=== PATIENT | female | born 1995 | race Caucasian/White ===

== ENCOUNTER → 2018-10-20 11:11 | Outpatient (CLI) | payer OTHER, MEDICAID, SELFPAY ==
--- NOTE | 2018-10-20 11:13 | DI.US.S_ITS ---
PROCEDURE: US PELVIC COMPLETE INDICATIONS: located iud TECHNIQUE: Real-time scanning was performed of the pelvic organs, with image documentation. Additional endovaginal scanning was necessary due to incomplete visualization of the adnexal and endometrial structures by transabdominal scanning. COMPARISON: [facility], PELVIC COMPLETE, 07/10/2011, 11:20. [facility], , PELVIC COMPLETE, 05/20/2008, 22:15. FINDINGS: Transabdominal scanning: Limited scanning through the kidneys shows no hydronephrosis. No pathologic free abdominal or pelvic fluid. Endovaginal scanning: Uterus: Uterus is normal in size at 3.7 x 4.1 x 6.0 cm. The endometrium measures 5.7 mm in combined thickness. Centrally positioned IUD is noted. Ovaries: Right and left ovaries appear normal in size with what appears to be a simple cyst at the right ovary measuring up to 2 point a 3 x 2.4 x 2.8 cm. IMPRESSION: Centrally positioned IUD, within the endometrial canal. 2.8 cm maximal dimension right ovarian cyst incidentally noted, simple. If clinically desired this could be reevaluated in 6-8 weeks to confirm resolution. Dictated by: Vladimir Espinoza M.D. on 10/20/2018 at 14:09 Approved by: Vladimir Espinoza M.D. on 10/20/2018 at 14:12
== END ==
PROVIDERS: PCP Family Medicine; Visit Provider Family Medicine
DX: T83.32XA Displacement of intrauterine contraceptive device, initial encounter (principal); N83.291 Other ovarian cyst, right side
CPT/HCPCS: 76856

== ENCOUNTER → 2019-08-23 12:49 | Outpatient (CLI) | payer OTHER, MEDICAID, SELFPAY ==
[2019-08-23 13:22] LABS: Add Manual Diff / Slide Review NO; Basophils Absolute Auto 0 /uL (0-100); Basophils Percent Auto 0.4 % (0-2); Eosinophils Absolute Auto 300 /uL (0-450); Eosinophils Percent Auto 4.7 % (2-4); Hematocrit 40.4 % (36-46); Lymphocytes Absolute Auto 1500 /uL (1100-4500); Lymphocytes Percent Auto 25.4 % (25-40); Mean Corpuscular HGB Conc 34.7 % (30-36); Mean Corpuscular Hemoglobin 31.4 PG (26-34); Mean Corpuscular Volume 90.4 fL (80-100); Monocytes Absolute Auto 300 /uL (0-900); Monocytes Percent Auto 5.1 % (3-14); Neutrophils Absolute Auto 3900 /uL (1500-7000); Neutrophils Percent Auto 64.4 % (50-75); Platelet Count 263 X10^3/uL (150-400); Red Blood Cell Count 4.47 X10^6/uL (4.0-5.2); Red Cell Distribution Width 12.4 % (11.6-14.8)
[2019-08-23 13:35] LABS: Alanine Aminotransferase 17 IU/L (<35); Albumin 4.9 g/dL (3.5-5.0); Albumin Globulin Ratio 1.4 (1.0-2.8); Alkaline Phosphatase 73 U/L (38-126); Aspartate Aminotransferase 23 IU/L (14-36); Bilirubin Total 0.5 mg/dL (0.2-1.3); Blood Urea Nitrogen 12 mg/dL (7-17); Calcium 9.6 mg/dL (8.4-10.2); Carbon Dioxide 26 mmol/L (22-32); Chloride 104 mmol/L (98-107); Estimated Glomerular Filt Rate > 60.0 mL/min (>60); Globulin 3.6 g/dL (1.7-4.1); Glucose 114 mg/dL (70-100); HEMOLYSIS < 15 (0-50); Potassium 4.4 mmol/L (3.4-5.1); Sodium 142 mmol/L (137-145); Total Protein 8.5 g/dL (6.3-8.2)
[2019-08-23 13:51] LABS: HCG Quantitative /Beta subunit < 2.39 mIU/mL
[2019-08-23 14:47] LABS: TSH w/ Reflex to FT4 0.82 uIU/mL (0.47-4.68)
== END ==
PROVIDERS: PCP Family Medicine; Visit Provider Family Medicine
DX: O03.9 Complete or unspecified spontaneous abortion without complication (principal); R53.83 Other fatigue
CPT/HCPCS: 36415; 80053; 84443; 84702; 85025; 86850; 86900; 86901

== ENCOUNTER → 2020-04-09 10:04 | Outpatient (CLI) | payer OTHER, MEDICAID, SELFPAY ==
[2020-04-09 15:17] LABS: Add Manual Diff / Slide Review NO; Basophils Absolute Auto 100 /uL (0-100); Basophils Percent Auto 0.8 % (0-2); Eosinophils Absolute Auto 200 /uL (0-450); Eosinophils Percent Auto 2.4 % (2-4); Hematocrit 39.7 % (36-46); Hemoglobin 13.5 g/dL (12.0-16.0); Lymphocytes Absolute Auto 2000 /uL (1100-4500); Lymphocytes Percent Auto 29.5 % (25-40); Mean Corpuscular Hemoglobin 31.1 PG (26-34); Mean Corpuscular Volume 91.5 fL (80-100); Monocytes Absolute Auto 400 /uL (0-900); Monocytes Percent Auto 5.8 % (3-14); Neutrophils Absolute Auto 4200 /uL (1500-7000); Neutrophils Percent Auto 61.5 % (50-75); Platelet Count 271 X10^3/uL (150-400); Red Blood Cell Count 4.34 X10^6/uL (4.0-5.2); Red Cell Distribution Width 12.4 % (11.6-14.8); White Blood Cell Count 6.9 X10^3/uL (4.5-11.0)
[2020-04-09 15:25] LABS: Chloride 102 mmol/L (98-107); HEMOLYSIS < 15 (0-50)
[2020-04-09 15:28] LABS: BUN Creatinine Ratio 18.2 (6-22); Blood Urea Nitrogen 10 mg/dL (7-17); Calcium 9.4 mg/dL (8.4-10.2); Carbon Dioxide 27 mmol/L (22-32); Estimated Glomerular Filt Rate > 60.0 mL/min (>60); Glucose 94 mg/dL (70-100); Potassium 4.2 mmol/L (3.4-5.1); Sodium 141 mmol/L (137-145)
[2020-04-09 16:06] LABS: TSH w/ Reflex to FT4 1.58 uIU/mL (0.47-4.68)
== END ==
PROVIDERS: PCP Family Medicine; Referring Provider Family Medicine; Visit Provider Family Medicine
DX: F32.9 Major depressive disorder, single episode, unspecified (principal)
CPT/HCPCS: 36415; 80048; 84443; 85025

== ENCOUNTER → 2020-05-08 13:17 | Outpatient (CLI) | payer OTHER, MEDICAID, SELFPAY ==
[2020-05-08 14:39] LABS: HCG Quantitative /Beta subunit 44953 mIU/mL
== END ==
PROVIDERS: PCP Family Medicine; Referring Provider Family Medicine; Visit Provider Family Medicine
DX: N91.2 Amenorrhea, unspecified (principal)
CPT/HCPCS: 36415; 84702

== ENCOUNTER → 2020-06-11 13:01 | Outpatient (CLI) | payer OTHER, MEDICAID, SELFPAY ==
[2020-06-11 13:39] LABS: Add Manual Diff / Slide Review NO; Basophils Absolute Auto 0 /uL (0-100); Basophils Percent Auto 0.4 % (0-2); Eosinophils Absolute Auto 100 /uL (0-450); Eosinophils Percent Auto 2.2 % (2-4); Hematocrit 36.2 % (36-46); Hemoglobin 12.5 g/dL (12.0-16.0); Lymphocytes Absolute Auto 1200 /uL (1100-4500); Lymphocytes Percent Auto 19.2 % (25-40); Mean Corpuscular HGB Conc 34.5 % (30-36); Mean Corpuscular Hemoglobin 31.3 PG (26-34); Mean Corpuscular Volume 90.8 fL (80-100); Monocytes Absolute Auto 400 /uL (0-900); Monocytes Percent Auto 6.5 % (3-14); Neutrophils Absolute Auto 4500 /uL (1500-7000); Neutrophils Percent Auto 71.7 % (50-75); Platelet Count 221 X10^3/uL (150-400); Red Blood Cell Count 3.99 X10^6/uL (4.0-5.2); Red Cell Distribution Width 12.9 % (11.6-14.8); White Blood Cell Count 6.3 X10^3/uL (4.5-11.0)
[2020-06-11 15:33] LABS: Hepatitis B Surface Antigen NEGATIVE s/c (NEGATIVE); Rubella Antibody IgG 12.8 IU/mL (>15)
[2020-06-11 15:41] LABS: HIV 1 & 2 Ab/Ag 4th Gen Combo NEGATIVE (NEGATIVE); Hep C Virus Ab w/Reflex Quant NEGATIVE s/c (NEGATIVE)
[2020-06-11 17:50] LABS: Appearance Urine UA CLEAR; Bilirubin Urine UA NEGATIVE (NEGATIVE); Color Urine UA YELLOW; Glucose Urine UA NEGATIVE (Negative); Ketones Urine UA NEGATIVE (NEGATIVE); Leukocyte Esterase Urine UA 1+ (NEGATIVE); Nitrite Urine UA NEGATIVE (Negative); Occult Blood Urine UA NEGATIVE (Negative); Protein Urine UA NEGATIVE (Negative); Specific Gravity Urine UA 1.015 (1.000-1.035); Urobilinogen Urine UA 0.2 E.U./dL (0.2)
[2020-06-11 17:52] LABS: pH Urine UA 6.5 (4.5-8.0)
[2020-06-11 17:53] LABS: RBC Urine None Seen (0-5/HPF)
[2020-06-11 18:01] LABS: Amorphous Sediment Urine 1+; Bacteria Urine Many (>30); Culture Indicated Urine Specimen Cultured; Mucus Urine 1+ (Negative); Squamous Epithelial Cell Urine 5-10 /HPF (0-5/HPF); WBC Urine 5-10/HPF (0-5/HPF)
[2020-06-12 05:10] LABS: RPR Screen Non Reactive (Non Reactive)
[2020-06-12 06:17] LABS: Varicella IgG Antibody 406 index (Immune >165)
== END ==
PROVIDERS: PCP Family Medicine; Referring Provider Family Medicine; Visit Provider Family Medicine
DX: Z34.81 Encounter for supervision of other normal pregnancy, first trimester (principal)
CPT/HCPCS: 36415; 80055; 81003; 81015; 86787; 86803; 86850; 86900; 86901; 87086; 87389

== ENCOUNTER → 2020-07-23 14:23 | Outpatient (CLI) | payer OTHER, MEDICAID, SELFPAY ==
[2020-07-25 20:36] LABS: AFP, Serum 96.6 ng/mL (.); Calc Gestational Age Ultrasound (.); Estriol, Free 2.04 ng/mL (.); Inhibin A, Dimeric 186.82 pg/mL (.); Inhibin A, MoM 1.09 (.); Maternal Ethnicity Caucasian (.); Maternal Weight 137 lbs (.); Number of Fetuses No (.); OSBR Risk 1 IN 378 (.); Results Report (.); Test Results *Screen Negative* (.); hCG, MoM 0.74 (.); hCG, Serum 25878 mIU/mL (.)
== END ==
PROVIDERS: PCP Family Medicine; Referring Provider Family Medicine; Visit Provider Family Medicine
DX: Z34.82 Encounter for supervision of other normal pregnancy, second trimester (principal); Z3A.16 16 weeks gestation of pregnancy
CPT/HCPCS: 36415; 82105; 82677; 84702; 86336

== ENCOUNTER → 2020-08-06 09:10 | Outpatient (CLI) | payer OTHER, MEDICAID, SELFPAY ==
--- NOTE | 2020-08-06 09:11 | DI.US.S_ITS ---
PROCEDURE: US OB >= 14 WEEKS FETUS INDICATIONS: ANATOMIC SURVEY OUTSIDE/PRIOR DATING DATA: First dating scan (date and location): 08/06/2020 . Estimated date of delivery (LEA) from first dating scan: 12/26/20 . TECHNIQUE: Real-time scanning was performed of the fetus, with image documentation and biometric measurements. Endovaginal scanning: No COMPARISON: None. FINDINGS: General: A single living intrauterine gestation is present. Presentation: Breech. Placenta: Placental position is anterior , without previa. Amniotic fluid index: 12.9 cm, normal range is 5-24 cm. heart rate: 135 beats per minute. Maternal cervical canal: 3.9 cm long. Normal lower limit is 2.5 cm. biometrics: Biparietal diameter: 19 weeks 2 days Head circumference: 19 weeks 3 days Abdominal circumference: 20 weeks 2 days Femur length: 19 weeks Estimated gestational age from initial scan: not applicable. Composite gestational age from present scan: 19 weeks 4 days Estimated weight and percentile: 304 g. Measurement variability for biometric dating: +/- 7 days from 14 weeks to 15 weeks 6 days gestation, +/- 10 days from 16 weeks to 21 weeks 6 days gestation, +/- 2 weeks from 22 weeks to 27 weeks 6 days gestation, +/- 3 weeks for 28 weeks gestation or later. weight reference: 4500 g or EFW >90/95% is considered macrosomia or large for gestational age. EFW <10% is small for gestational age. EFW 5% or less is considered intra-uterine growth restriction. Anatomic survey: Neuro: Ventricles are non-dilated at less than 10 mm. Cisterna magna is normal at 3-11 mm. Cerebellum is normal in size and morphology. Nuchal skin fold: Normal at less than 6 mm between 14-21 weeks gestational age. Face: Nose and lips, facial profile are normal. Spine: No evidence for spina bifida. Heart: 4-chambered heart is present, with normal ventricular outflow tracts. Diaphragm: Diaphragm is intact. Stomach: Left-sided stomach is present. Kidneys: No hydronephrosis. Normal is less than 5 mm in 2nd trimester, less than 7 mm in 3rd trimester. Cord: 3-vessel cord has orthotopic insertion. Bladder: Normal in size. Extremities: All 4 extremities identified. IMPRESSION: 1. 19 week 4 day single living IUP corresponding to ultrasound LEA of 12/26/2020. 2. Normal anatomic survey. Dictated by: Celio Gilliland RRA Interpreted: Solo Junior MD on 08/06/2020 at 15:40 Approved by: Solo Junior M.D. on 08/06/2020 at 17:04
== END ==
PROVIDERS: PCP Family Medicine; Referring Provider Family Medicine; Visit Provider Family Medicine
DX: Z34.82 Encounter for supervision of other normal pregnancy, second trimester (principal); Z3A.19 19 weeks gestation of pregnancy
CPT/HCPCS: 76811

== ENCOUNTER 2020-09-11 14:11 | Outpatient (CLI) | payer OTHER, MEDICAID, SELFPAY | END 2020-09-11 15:45 | disposition home or self-care (01) | LOC: LABOR 15:11 → OB 09-12 08:24 | PROVIDERS: PCP Family Medicine; Referring Provider Family Medicine; Visit Provider Family Medicine | DX: O47.02 False labor before 37 completed weeks of gestation, second trimester (principal); Z3A.24 24 weeks gestation of pregnancy | CPT/HCPCS: 59025; G0378; G0379 ==

== ENCOUNTER 2020-10-29 14:02 | Outpatient (CLI) | payer OTHER, MEDICAID, SELFPAY ==
[2020-10-29 15:12] LABS: Appearance Urine UA SL CLOUDY; Bilirubin Urine UA NEGATIVE (NEGATIVE); Color Urine UA YELLOW; Glucose Urine UA NEGATIVE (Negative); Ketones Urine UA TRACE (NEGATIVE); Leukocyte Esterase Urine UA 2+ (NEGATIVE); Nitrite Urine UA NEGATIVE (Negative); Occult Blood Urine UA NEGATIVE (Negative); Protein Urine UA NEGATIVE (Negative); Specific Gravity Urine UA <=1.005 (1.000-1.035); Urobilinogen Urine UA 0.2 E.U./dL (0.2)
[2020-10-29 15:25] LABS: Bacteria Urine Many (>30); Culture Indicated Urine Cult Not Indicated; RBC Urine 0-1/HPF (0-5/HPF); Squamous Epithelial Cell Urine >30 /HPF (0-5/HPF); Transitional Epi Cells Urine 1-5/HPF (0-5/HPF); WBC Urine 5-10/HPF (0-5/HPF)
== END 2020-10-29 16:29 | disposition home or self-care (01) ==
LOC: LABOR 14:56 → OB 10-30 07:01
PROVIDERS: PCP Family Medicine; Referring Provider Obstetrics & Gynecology; Visit Provider Obstetrics & Gynecology
DX: Z34.83 Encounter for supervision of other normal pregnancy, third trimester (principal); Z3A.31 31 weeks gestation of pregnancy
CPT/HCPCS: 59025; 81003; 81015; 87086; G0378; G0379

== ENCOUNTER → 2020-11-02 09:43 | Outpatient (CLI) | payer OTHER, MEDICAID, SELFPAY ==
--- NOTE | 2020-11-02 09:44 | DI.US.S_ITS ---
PROCEDURE: US OB LIMITED INDICATIONS: size and dates OUTSIDE/PRIOR DATING DATA: Last menstrual period (LMP): Not available. LMP-based estimated date of delivery (LEA): Not available . First dating scan (date and location): 08/06/20 . Estimated date of delivery (LEA) from first dating scan: 12/26/20 . TECHNIQUE: Real-time scanning was performed of the fetus, with image documentation and biometric measurements. Endovaginal scanning: Not needed COMPARISON: None. FINDINGS: General: A single living intrauterine gestation is present. Presentation: Vertex. Placenta: Placental position is anterior , without previa. Amniotic fluid index: 10.2 cm, normal range is 5-24 cm. heart rate: 149 beats per minute. Maternal cervical canal: 5.4 cm long. Normal lower limit is 2.5 cm. biometrics: Biparietal diameter: 8.0 cm, 32 weeks 2 days Head circumference: 29.4 cm, 32 weeks 3 days Abdominal circumference: 27.9 cm, 31 weeks 6 days Femur length: 6.5 cm, 33 weeks 3 days Estimated gestational age from initial scan: not applicable. Composite gestational age from present scan: 32 weeks 4 days Estimated weight and percentile: 1975g, 44% Measurement variability for biometric dating: +/- 7 days from 14 weeks to 15 weeks 6 days gestation, +/- 10 days from 16 weeks to 21 weeks 6 days gestation, +/- 2 weeks from 22 weeks to 27 weeks 6 days gestation, +/- 3 weeks for 28 weeks gestation or later. weight reference: 4500 g or EFW >90/95% is considered macrosomia or large for gestational age. EFW <10% is small for gestational age. EFW 5% or less is considered intra-uterine growth restriction. Other: Not applicable. IMPRESSION: Normal growth, cervical length, and RHONDA. Dictated by: Vladimir Espinoza M.D. on 11/02/2020 at 17:06 Approved by: Vladimir Espinoza M.D. on 11/06/2020 at 16:22
== END ==
PROVIDERS: PCP Family Medicine; Referring Provider Family Medicine; Visit Provider Family Medicine
DX: Z34.93 Encounter for supervision of normal pregnancy, unspecified, third trimester (principal); Z3A.32 32 weeks gestation of pregnancy
CPT/HCPCS: 76815

== ENCOUNTER → 2020-11-08 14:08 | Outpatient (CLI) | payer OTHER, MEDICAID, SELFPAY ==
[2020-11-08 14:25] LABS: Appearance Urine UA CLEAR; Bilirubin Urine UA NEGATIVE (NEGATIVE); Color Urine UA YELLOW; Glucose Urine UA TRACE g/dL (Negative); Ketones Urine UA TRACE (NEGATIVE); Leukocyte Esterase Urine UA TRACE (NEGATIVE); Nitrite Urine UA NEGATIVE (Negative); Occult Blood Urine UA NEGATIVE (Negative); Protein Urine UA NEGATIVE (Negative); Urobilinogen Urine UA 0.2 E.U./dL (0.2)
[2020-11-08 14:27] LABS: RBC Urine None Seen (0-5/HPF)
[2020-11-08 14:33] LABS: WBC Urine 5-10/HPF (0-5/HPF)
[2020-11-08 14:34] LABS: Bacteria Urine Many (>30); Culture Indicated Urine Cult Not Indicated; Squamous Epithelial Cell Urine 10-30 /HPF (0-5/HPF)
== END ==
PROVIDERS: PCP Family Medicine; Referring Provider Family Medicine; Visit Provider Family Medicine
DX: R30.0 Dysuria (principal)
CPT/HCPCS: 81003; 81015

== ENCOUNTER 2020-12-04 22:47 | Observation (INO) | payer OTHER, MEDICAID, SELFPAY ==
--- NOTE | 2020-12-05 04:31 | P.TNLD_ITS ---
Visit Information Visit Information Date of evaluation: 12/05/20 Primary OB Provider: Grady Ferrell On-call OB Provider: Tere Breen Reason for Evaluation: Yes rule out labor [facility] Medical History Adjustment disorder with mixed anxiety and depressed mood Anxiety Chronic fatigue Closed head injury Contusion Contusion of left thigh Depression Depression Encounter for IUD removal Pharyngitis Sinusitis URI (upper respiratory infection) UTI (urinary tract infection) Surgical History No history of previous surgery (10/07/17) [place] teeth extracted Family History Mother Family estrangement Anxiety Father Family estrangement Grandmother Family estrangement Grandfather Kidney infection Family estrangement Bipolar 1 disorder Heart disease, unspecified Grandmother Family estrangement Grandfather Family estrangement Social History marital status: number of children: 1 household members: spouse and children (1) lives independently: Yes caregiver/support person: No housing: house pets and animals: Yes (1 cat with kittens, 2 dogs.) education level: college (some college) occupational status: unemployed (homeschooling full-time, 6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 ) current occupational exposures/hazards: No special howard needs: No leisure activities: exercise (walking ) seatbelt use: always Smoking Status: Never smoker second hand exposure: No alcohol intake: current (ON OCCASION ) substance use type: does not use during the past year weight has: remained stable Type(s) of exercise: walking frequency: 3-4 times per week Review of Systems Review of Systems Narrative: Patient complains of contractions, no leakage of fluid. No headaches, scotomata, epigastric pain. ROS: Yes All systems reviewed with the patient and are negative except as otherwise documented Exam Vital Signs (past 8 hours): Blood pressure 112/73, temperature 97.6?, pulse of 89 Evaluation Evaluation Baseline heart rate: 130 Variability: Moderate (11-25) monitor accelerations: Present Monitor Decelerations: Absent Contraction Frequency (minutes): 10 Uterine Contraction Intensity: Moderate Category of Tracing: Reactive Status: Category l Cervical dilation (cm): 3 Cervical effacement (%): 70 station: -2 Diagnosis, Plan/Disposition Final Diagnosis (1) 36 weeks gestation of : Status: Acute (2) False labor: Status: Acute Plan/Disposition Plan: Patient with no change in cervix after ambulation. OB Disposition: home
== END 2020-12-05 02:05 | disposition home or self-care (01) ==
LOC: LABOR 22:50
PROVIDERS: Admitting Provider Specialist; PCP Family Medicine; Referring Provider Specialist; Visit Provider Specialist
DX: O47.9 False labor, unspecified (principal); Z3A.36 36 weeks gestation of pregnancy
CPT/HCPCS: 59025; 87653; G0378; G0379

== ENCOUNTER → 2020-12-05 09:52 | Outpatient (CLI) | payer OTHER, MEDICAID, SELFPAY ==
[2020-12-06 11:20] LABS: Strep Grp B PCR NEG for Grp B Strep
== END ==
PROVIDERS: PCP Family Medicine; Visit Provider Family Medicine
DX: Z3A.36 36 weeks gestation of pregnancy (principal)
CPT/HCPCS: 87653

== ENCOUNTER 2020-12-16 18:32 | Outpatient (CLI) | payer OTHER, MEDICAID, SELFPAY | END 2020-12-16 19:56 | disposition home or self-care (01) | LOC: OB 12-17 08:07 | PROVIDERS: PCP Family Medicine; Referring Provider Obstetrics & Gynecology; Visit Provider Obstetrics & Gynecology | DX: O47.1 False labor at or after 37 completed weeks of gestation (principal); Z3A.38 38 weeks gestation of pregnancy | CPT/HCPCS: 59025; 59050; G0378; G0379 ==

== ENCOUNTER 2020-12-24 07:48 | Inpatient (IN) | payer OTHER, MEDICAID, SELFPAY ==
[2020-12-24 08:27] VITALS: BP 122/76
[2020-12-24 08:31] LABS: Add Manual Diff / Slide Review NO; Basophils Absolute Auto 100 /uL (0-100); Basophils Percent Auto 0.7 % (0-2); Eosinophils Absolute Auto 100 /uL (0-450); Eosinophils Percent Auto 1.7 % (2-4); Hematocrit 33.6 % (36-46); Hemoglobin 11.4 g/dL (12.0-16.0); Lymphocytes Absolute Auto 1800 /uL (1100-4500); Lymphocytes Percent Auto 23.2 % (25-40); Mean Corpuscular Hemoglobin 30.5 PG (26-34); Mean Corpuscular Volume 89.8 fL (80-100); Monocytes Absolute Auto 400 /uL (0-900); Monocytes Percent Auto 4.8 % (3-14); Neutrophils Absolute Auto 5300 /uL (1500-7000); Neutrophils Percent Auto 69.6 % (50-75); Platelet Count 149 X10^3/uL (150-400); Red Blood Cell Count 3.74 X10^6/uL (4.0-5.2); Red Cell Distribution Width 13.5 % (11.6-14.8); White Blood Cell Count 7.6 X10^3/uL (4.5-11.0)
[2020-12-24] MEDS: LACTATED RINGERS 1,000 ML 100 ML IV ×2 (08:52→12:19)
[2020-12-24] MEDS: OXYTOCIN PREMIX 30 UNIT/500 ML PLAST..BAG IV (08:52)
--- NOTE | 2020-12-24 08:56 | P.HPOB_ITS ---
OB HPI Date/Time Date of admission: 12/24/20 Date Patient Seen: 12/24/20 Time Patient Seen: 09:01 History of Present Condition Chief complaint: OBS : 3 Para: 1 Estimated Date of Delivery: 12/30/20 Estimated Gestational Age (weeks): 39 Narrative: Melodie Sharif is a 25 year old female G3 para 1 with estimat ed due date of 12/30/2020 by ultrasound and 01/01/2021 by LMP presents to the labor and delivery floor with ongoing contractions maternal discomfort lots of ongoing pelvic pressure pain symptoms have been ongoing for the past 3 weeks but more consistently over the past 24 hours. On evaluation in the Center she feels like she is leaking fluid. Her AmniSure was negative. Her heart tracing is reactive and category 1 and she is having intermittent contractions. Patient is dilated to 4 cm 80%-1 station. Patient's vital signs are stable and she is afebrile. She is admitted to the center for ongoing management and evaluation of early labor. Patient establish care at 6 weeks. Had good routine follow-up. care is complicated by anxiety which patient was prescribed medication for but she declined to take. Previous 8 years ago vaginal delivery male infant. Past medical history reviewed. With social history family history. Indications Indication for induction OB: maternal discomfort History of Present care: good care Dating criteria: LMP confirmed by 1st trimester US Ultrasounds: normal 1st trimester US and normal mid trimester US Obstetrical complications: none Medical complications: other Preadmission Labs Blood type: O (+) positive -: Antibody screen: negative, Cystic fibrosis screen: unknown, GBS status: negative, HBsAG: negative, HIV: negative, HSV 1: unknown, HSV 2: unknown and RPR/VDLR: negative -: Chlamydia screen: not detected and Gonorrhea screen: not detected -: Rubella: equivocal and Varicella: immune HCT: 33.6 HCAB: negative PAP: Normal Quad screen: Normal Evaluation Evaluation Baseline heart rate: 140 Variability: Average (6-10) monitor accelerations: Present Monitor Decelerations: Absent Contraction Frequency (minutes): 7 Uterine Contraction Intensity: Mild Category of Tracing: Reactive Status: Category l Cervical dilation (cm): 4 Cervical effacement (%): 80 station: -1 Laboratory results: Laboratory Tests 12/24/20 08:15 WBC 7.6 RBC 3.74 L Hgb 11.4 L Hct 33.6 L MCV 89.8 MCH 30.5 MCHC 34.0 RDW 13.5 Plt Count 149 L Neut % (Auto) 69.6 Lymph % (Auto) 23.2 L [place] % (Auto) 4.8 Eos % (Auto) 1.7 L Baso % (Auto) 0.7 Neut # (Auto) 5300 Lymph # (Auto) 1800 [place] # (Auto) 400 Eos # (Auto) 100 Baso # (Auto) 100 Non-invasive Membranes Rupture Test: negative [facility] Medical History Adjustment disorder with mixed anxiety and depressed mood Anxiety Chronic fatigue Closed head injury Contusion Contusion of left thigh Depression Depression Encounter for IUD removal Pharyngitis Sinusitis URI (upper respiratory infection) UTI (urinary tract infection) Surgical History No history of previous surgery (10/07/17) [place] teeth extracted Family History Mother Family estrangement Anxiety Father Family estrangement Grandmother Family estrangement Grandfather Kidney infection Family estrangement Bipolar 1 disorder Heart disease, unspecified Grandmother Family estrangement Grandfather Family estrangement Social History marital status: number of children: 1 household members: spouse and children (1) lives independently: Yes caregiver/support person: No housing: house pets and animals: Yes (1 cat with kittens, 2 dogs.) education level: college (some college) occupational status: unemployed (homeschooling full-time, 6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 ) current occupational exposures/hazards: No special howard needs: No leisure activities: exercise (walking ) seatbelt use: always Smoking Status: Never smoker second hand exposure: No alcohol intake: current (ON OCCASION ) substance use type: does not use during the past year weight has: remained stable Type(s) of exercise: walking frequency: 3-4 times per week Meds Home Medications and Allergies Home Medications Medication Instructions Recorded Confirmed Type prenat.vits,cortez,[id number]-fpahe 1 tab PO DAILY 05/10/20 12/20/20 History Allergies Allergy/AdvReac Type Severity Reaction Status Date / Time amoxicillin [AMOXICILLIN] Allergy Intermediate Rash, Verified 12/20/20 09:12 throat swelling. latex Allergy Intermediate ITCHING/DANNIELLE Verified 12/20/20 09:12 H Penicillins Allergy Intermediate Rash, Verified 12/20/20 09:12 Throat swelling zolpidem Allergy Mild HIVES AND Verified 12/20/20 09:12 HOT FLASHES crab AdvReac Mild ITCHING Verified 12/24/20 08:39 Fish Containing Products AdvReac Mild Rash Verified 12/24/20 08:39 Exam Vital Signs (past 8 hours): - 12/24/20 08:27 Blood Pressure 122/76 Narrative Exam Narrative: General: Alert no apparent distress. Affect is appropriate. Cindi it is uncomfortable. HEENT: Neck is supple without lymphadenopathy pupils equal round and reactive. Cardio: S1-S2 regular rate and rhythm. Respiratory: Lungs clear to auscultation. Abdomen: Gravid. Extremities: Normal deep tendon reflexes trace edema. Boyce: Cindi irregularly heart tones: heart tones 140 reactive strip category 1 tracing Objective Labs Result Diagrams: 12/24/20 08:15 Labs: Laboratory Results - last 24 hr 12/24/20 08:15 WBC 7.6 RBC 3.74 L Hgb 11.4 L Hct 33.6 L MCV 89.8 MCH 30.5 MCHC 34.0 RDW 13.5 Plt Count 149 L Neut % (Auto) 69.6 Lymph % (Auto) 23.2 L [place] % (Auto) 4.8 Eos % (Auto) 1.7 L Baso % (Auto) 0.7 Neut # (Auto) 5300 Lymph # (Auto) 1800 [place] # (Auto) 400 Eos # (Auto) 100 Baso # (Auto) 100 Assessment and Plan Assessment and Plan Assessment and Plan narrative: 25-year-old G3 para 139+ weeks gestational age in early labor with significant maternal discomfort patient anticipating induction tomorrow of labor. Due to discomfort early contractions patient's labor was induced today with amniotomy and Pitocin augmentation. Risks benefits and common complications of labor induction reviewed with the patient consent was obtained in of formed orders were written for. Patient is anticipating an epidural. Patient's blood pressure vital signs and temperature stable she is GBS negative.
[2020-12-24 09:21] LABS: COVID19 - ADMIT (NP swab/PCR) Negative (Negative)
--- NOTE | 2020-12-24 11:31 | PM.OBPNLAB ---
Date/Time Date Patient Seen: 12/24/20 Time Patient Seen: 11:31 Pain Control Pain control: tolerating well Comments: getting uncomfortable Pelvic Exam Dilation (cm): 4 Effacement (%): 80 station: -1 Contractions Contractions on admission: regular Monitor mode: External Pitocin rate (mU/min): 4 Contraction frequency (min): 4 Contraction duration (min): 1 Contraction pattern: Regular Contraction intensity: Moderate Status status: Category l Heart Rate Baseline: 145 Monitor Accelerations: Present Monitor Decelerations: Absent Monitor Variability: Marked Assessment and Plan Assessment: induction ongoing Plan: continuous present management
--- NOTE | 2020-12-24 12:21 | PM.OBPNLAB ---
Date/Time Date Patient Seen: 12/24/20 Time Patient Seen: 12:21 Pain Control Pain control: tolerating well and epidural Pelvic Exam Dilation (cm): 10 Effacement (%): 100 station: +1 Amniotic membrane status: Leaking Contractions Monitor mode: External Pitocin rate (mU/min): 0 Contraction frequency (min): 4 Contraction duration (min): 1 Contraction pattern: Regular Contraction intensity: Moderate Status status: Category l Heart Rate Baseline: 135 Monitor Accelerations: Present Monitor Decelerations: Absent Monitor Variability: Moderate Assessment and Plan Assessment: active labor Plan: continuous present management Comments: Start pushing
--- NOTE | 2020-12-24 14:04 | PM.OBPRVD ---
Labor & Delivery Delivery date: 12/24/20 Intrapartal Events: None Cervical ripening method: none Induction method: AROM Delivery augmentation: rupture of membranes and pitocin Delivery monitor: external FHT Route of delivery: L&D Laceration Description: None Estimated blood loss (mL): 150 Anesthesia Type: Epidural Narrative: Stage I of labor approximately 3-1/2 hours. During stage I of labor patient had admission to the hospital with amniotomy of clear fluid she was 4 cm. Pitocin was started patient got up to 4 milliunits with good contractions. She made rapid progression from 4-8. Requested an epidural at that point Pitocin was stopped. Epidural was placed during stage I of labor with good results. She had adequate pain relief. Became complete at approximately noon. After she had good adequate anesthesia lb pushing started. During stage I of labor she had category 1 tracing. Vital signs were stable she was afebrile GBS status was negative. Stage II of labor approximately 1 hour and 15 minutes. Category 1 tracing and category 2 tracing during stage II of labor. Mom pushed and made good descent of the baby's head see the canal. At the delivery of the head there was no nuchal cord. Shoulders delivered spontaneously without difficulty. Baby was placed on the mother's abdomen with the late cord clamping. Baby had spontaneous cry and good tone and color. Inspection of the cervix and vagina sewed no significant lacerations. Stage III of labor approximately a a 15 minutes. Delivery of intact placenta three-vessel cord. Vaginal and cervical lacerations were not visualized. Patient had firm uterus. Estimated blood loss was someone 150 cc and baby's Apgars were 9 and 9.
[2020-12-24] MEDS: IBUPROFEN 600 MG TABLET PO (20:48)
[2020-12-24] MEDS: DOCUSATE 100 MG CAPSULE PO (20:48)
[2020-12-25] MEDS: IBUPROFEN 600 MG TABLET PO (03:02)
[2020-12-25 06:37] LABS: Hematocrit 33.2 % (36-46); Hemoglobin 11.3 g/dL (12.0-16.0)
--- NOTE | 2020-12-25 08:22 | P.DS_ITS ---
Discharge Providers Provider Date of admission: 12/24/20 07:48 Discharge Date: 12/25/20 Primary care physician: Grady Ferrell MD Consults: 12/25/20 14:02 Consult to Aging Room Operator Routine Comment: Discharge provider: Grady Ferrell MD Summary Hospital Course Date Patient Seen: 12/25/20 Time Patient Seen: 08:22 Diagnoses: Vaginal delivery of viable female Routine care Peripartum Data Delivery Method: Natural Vaginal Laceration Description: None complications: none Time Spent with Patient Time attestation: Total time spent providing and/or coordinating discharge services: Time spent: Less than 30 minutes Objective Labs Result Diagrams: 12/25/20 06:30 Labs: Laboratory Results - last 24 hr 12/24/20 12/24/20 12/24/20 08:15 08:15 08:15 WBC 7.6 RBC 3.74 L Hgb 11.4 L Hct 33.6 L MCV 89.8 MCH 30.5 MCHC 34.0 RDW 13.5 Plt Count 149 L Neut % (Auto) 69.6 Lymph % (Auto) 23.2 L [place] % (Auto) 4.8 Eos % (Auto) 1.7 L Baso % (Auto) 0.7 Neut # (Auto) 5300 Lymph # (Auto) 1800 [place] # (Auto) 400 Eos # (Auto) 100 Baso # (Auto) 100 SARS-CoV-2 (PCR) Negative Blood Type O Positive Antibody Screen Negative 12/25/20 06:30 WBC RBC Hgb 11.3 L Hct 33.2 L MCV MCH MCHC RDW Plt Count Neut % (Auto) Lymph % (Auto) [place] % (Auto) Eos % (Auto) Baso % (Auto) Neut # (Auto) Lymph # (Auto) [place] # (Auto) Eos # (Auto) Baso # (Auto) SARS-CoV-2 (PCR) Blood Type Antibody Screen Exam Vital Signs (past 8 hours): General: Alert no apparent distress. Affect is appropriate. Cindi it is uncomfortable. HEENT: Neck is supple without lymphadenopathy pupils equal round and reactive. Cardio: S1-S2 regular rate and rhythm. Respiratory: Lungs clear to auscultation. Abdomen: Uterus firm. Extremities: Normal deep tendon reflexes trace edema. Discharge Plan Discharge Plan Patient Disposition: Home Discharge orders & Medications Prescriptions: New ibuprofen 600 mg Tablet 600 mg PO Q6HR PRN (Reason: Pain, Mild (1-3)) Qty: 30 RF: 0 docusate sodium [DOK] 100 mg Capsule 100 mg PO BID Qty: 20 RF: 0 Continued prenat.vits,cortez,[id number] Tablet 1 tab PO DAILY RF: 0 Follow up/Referrals: Grady Ferrell MD [Primary Care Provider] - Visit Report/Discharge Packet Visit Report Forms: Patient Portal/API, Stroke Signs & Symptoms Discharge Data Primary Care Provider: Grady Ferrell
[2020-12-25] MEDS: DOCUSATE 100 MG CAPSULE PO (09:00)
[2020-12-25] MEDS: FERROUS SULFATE 325 MG TABLET PO (09:00)
[2020-12-25 09:47] VITALS: BP 122/76; PULSE 74; RESP 18; TEMP 36.6
== END 2020-12-25 17:00 | disposition home or self-care (01) | DRG 560 ==
PROVIDERS: Admitting Provider Family Medicine; PCP Family Medicine; Referring Provider Family Medicine; Visit Provider Family Medicine
DX: O99.344 Other mental disorders complicating childbirth (principal); F41.9 Anxiety disorder, unspecified; Z3A.39 39 weeks gestation of pregnancy; Z37.0 Single live birth; Z20.822 Contact with and (suspected) exposure to COVID-19
CPT/HCPCS: 01967; 36415; 59050; 59409; 84112; 85014; 85018; 85025; 86850; 86900; 86901; 87635; C9803; G0379; J2590

== ENCOUNTER → 2024-03-01 09:23 | Outpatient (CLI) | payer OTHER, MEDICAID, SELFPAY ==
[2024-03-01 10:57] LABS: Appearance Urine UA CLEAR; Bilirubin Urine UA NEGATIVE (NEGATIVE); Color Urine UA YELLOW; Glucose Urine UA NEGATIVE (Negative); Ketones Urine UA NEGATIVE (NEGATIVE); Leukocyte Esterase Urine UA TRACE (NEGATIVE); Nitrite Urine UA NEGATIVE (Negative); Occult Blood Urine UA NEGATIVE (Negative); Protein Urine UA NEGATIVE (Negative); Specific Gravity Urine UA <=1.005 (1.000-1.035); Urobilinogen Urine UA 0.2 E.U./dL (0.2)
[2024-03-01 10:59] LABS: pH Urine UA 6.5 (4.5-8.0)
[2024-03-01 11:12] LABS: Bacteria Urine Many (>30); RBC Urine None Seen (0-5/HPF); Squamous Epithelial Cell Urine None Seen (0-5/HPF); Urine Volume 10mL (spun); WBC Urine 0-1/HPF (0-5/HPF)
== END ==
PROVIDERS: Obstetrics & Gynecology; PCP Family Medicine; Visit Provider Student in an Organized Health Care Education/Training Program
DX: R30.0 Dysuria (principal)
CPT/HCPCS: 81003; 81015; 87077; 87086

== ENCOUNTER → 2024-03-04 16:05 | Outpatient (CLI) | payer OTHER, MEDICAID, SELFPAY ==
[2024-03-04 17:16] LABS: Add Manual Diff / Slide Review NO; Basophils Absolute Auto 0 /uL (0-100); Basophils Percent Auto 0.4 % (0-2); Eosinophils Absolute Auto 200 /uL (0-450); Eosinophils Percent Auto 3.2 % (2-4); Hematocrit 37.9 % (36-46); Lymphocytes Absolute Auto 1600 /uL (1100-4500); Lymphocytes Percent Auto 24.6 % (25-40); Mean Corpuscular HGB Conc 34.4 % (30-36); Mean Corpuscular Hemoglobin 31.2 PG (26-34); Mean Corpuscular Volume 90.8 fL (80-100); Monocytes Absolute Auto 400 /uL (0-900); Monocytes Percent Auto 6.8 % (3-14); Neutrophils Absolute Auto 4100 /uL (1500-7000); Platelet Count 233 X10^3/uL (150-400); Red Blood Cell Count 4.17 X10^6/uL (4.0-5.2); Red Cell Distribution Width 13.3 % (11.6-14.8); White Blood Cell Count 6.4 X10^3/uL (4.5-11.0)
[2024-03-04 17:27] LABS: Natera Collection Specimen Collected
[2024-03-05 04:36] LABS: RPR Screen Non Reactive (Non Reactive)
[2024-03-05 08:10] LABS: Varicella IgG Antibody 604 index (Immune >165)
[2024-03-07 15:42] LABS: Hepatitis B Surface Antigen NEGATIVE s/c (NEGATIVE)
[2024-03-07 15:59] LABS: HIV 1 & 2 Ab/Ag 4th Gen Combo NEGATIVE (NEGATIVE); Hep C Virus Ab w/Reflex Quant NEGATIVE s/c (NEGATIVE)
== END ==
PROVIDERS: Obstetrics & Gynecology; PCP Family Medicine; Referring Provider Student in an Organized Health Care Education/Training Program; Visit Provider Student in an Organized Health Care Education/Training Program
DX: Z34.80 Encounter for supervision of other normal pregnancy, unspecified trimester (principal)
CPT/HCPCS: 36415; 80055; 86787; 86803; 86850; 86900; 86901; 87389

== ENCOUNTER → 2024-03-29 16:20 | Outpatient (CLI) | payer OTHER, MEDICAID, SELFPAY ==
[2024-03-30 15:09] LABS: Candida species Positive (Negative); Gardnerella vaginalis Negative (Negative); Trichomoas vaginalis Negative (Negative)
== END ==
PROVIDERS: PCP Family Medicine; Visit Provider Student in an Organized Health Care Education/Training Program
DX: N89.8 Other specified noninflammatory disorders of vagina (principal)
CPT/HCPCS: 87480; 87510; 87660

== ENCOUNTER 2024-04-02 11:45 | Emergency (ER) | payer OTHER, MEDICAID, SELFPAY ==
[2024-04-02] VITALS (8 sets, daily range): BP systolic 99–113; BP diastolic 58–77; PULSE 84–98; RESP 18; TEMP 36.4; O2SAT 97–100; BMI 21.7
[2024-04-02 12:19] LABS: Add Manual Diff / Slide Review NO; Basophils Absolute Auto 0 /uL (0-100); Basophils Percent Auto 0.5 % (0-2); Eosinophils Absolute Auto 100 /uL (0-450); Eosinophils Percent Auto 1.9 % (2-4); Hematocrit 35.6 % (36-46); Hemoglobin 12.4 g/dL (12.0-16.0); Lymphocytes Absolute Auto 1000 /uL (1100-4500); Lymphocytes Percent Auto 15.3 % (25-40); Mean Corpuscular HGB Conc 34.8 % (30-36); Mean Corpuscular Volume 89.1 fL (80-100); Monocytes Absolute Auto 300 /uL (0-900); Monocytes Percent Auto 5.3 % (3-14); Neutrophils Absolute Auto 5000 /uL (1500-7000); Platelet Count 196 X10^3/uL (150-400); Red Blood Cell Count 3.99 X10^6/uL (4.0-5.2); Red Cell Distribution Width 12.6 % (11.6-14.8); White Blood Cell Count 6.6 X10^3/uL (4.5-11.0)
[2024-04-02 12:25] LABS: Alanine Aminotransferase 19 IU/L (<35); Albumin 3.9 g/dL (3.5-5.0); Albumin Globulin Ratio 1.3 (1.0-2.8); Alkaline Phosphatase 69 U/L (38-126); Aspartate Aminotransferase 22 IU/L (14-36); BUN Creatinine Ratio 15.9 (6-22); Bilirubin Total 0.4 mg/dL (0.2-1.3); Blood Urea Nitrogen 7 mg/dL (7-17); Calcium 8.8 mg/dL (8.4-10.2); Carbon Dioxide 20 mmol/L (22-32); Chloride 107 mmol/L (98-107); Estimated Glomerular Filt Rate > 60 mL/min (>60); Globulin 3.1 g/dL (1.7-4.1); Glucose 84 mg/dL (70-100); HEMOLYSIS < 15 (0-50); Sodium 135 mmol/L (137-145)
[2024-04-02] MEDS: SODIUM CHLORIDE 0.9% 1,000 ML 1000 ML IV (13:48)
[2024-04-02 14:39] LABS: Adenovirus F 40/41 Not Detected (Not Detect); Astrovirus Not Detected (Not Detect); Campylobacter Not Detected (Not Detect); Clostridium difficile toxin AB Not Detected (Not Detect); Cryptosporidium Not Detected (Not Detect); Cyclospora cayetanensis Not Detected (Not Detect); Entamoeba histolytica Not Detected (Not Detect); Enteroaggregative E.coli Not Detected (Not Detect); Enteropathogenic E.coli Detected (Not Detect); Enterotoxigenic E.coli It/st Not Detected (Not Detect); Giardia lamblia Not Detected (Not Detect); Norovirus GI/GII Not Detected (Not Detect); Plesiomonsa shigelloides Not Detected (Not Detect); Rotavirus A Not Detected (Not Detect); Salmonella Not Detected (Not Detect); Sapovirus Not Detected (Not Detect); Shiga-like toxin-prod E.coli Not Detected (Not Detect); Shigella/Enteroinvasive E.coli Not Detected (Not Detect); Vibrio Not Detected (Not Detect); Vibrio cholerae Not Detected (Not Detect); Yersinia enterocolitica Not Detected (Not Detect)
--- NOTE | 2024-04-02 14:54 | DI.US.S_ITS ---
PROCEDURE: US OB >= 14 WEEKS FETUS INDICATIONS: @ 15 wks. + ecoli / infections diarrhea. OUTSIDE/PRIOR DATING DATA: Last menstrual period (LMP): 12/09/2023. LMP-based estimated date of delivery (LEA): 09/14/2024. TECHNIQUE: Real-time scanning was performed of the fetus, with image documentation and biometric measurements. Endovaginal scanning: No COMPARISON: [facility], OB >= 14 WEEKS FETUS, 08/06/2020, 10:15. FINDINGS: General: A single living intrauterine gestation is present. Placenta: Placental position is anterior Amniotic fluid index: Not measured Single deepest vertical pocket is not measured heart rate: 145 beats per minute. biometrics: Biparietal diameter: 16 weeks 0 days Head circumference: 16 weeks 1 day Abdominal circumference: 16 weeks 0 days Femur length: 15 weeks 5 days Clinically estimated gestational age: 15 weeks 1 day Composite gestational age from present scan: 16 weeks 0 days Estimated weight and percentile: 138 g, 87th percentile Anatomic survey: Not performed secondary to gestational age IMPRESSION: Haddad live intrauterine gestation with sonographic measurements correlating with 16 weeks 0 days gestational age for an LEA of 09/17/2024. We strive to produce accurate, complete, and clear reports of imaging services. To assist us in improving patient care, this report was composed using standard report templates and voice recognition software. Therefore, it may contain abnormal punctuation, insertions and/or omissions. Occasional wrong-word or sound-alike substitutions may occur. Though we review the report and make efforts to correct it, we do recommend that the report be read carefully in proper context to recognize any text inaccuracies. Dictated by: Maribell Fischer M.D. on 04/02/2024 at 15:01 Approved by: Maribell Fischer M.D. on 04/02/2024 at 15:05
[2024-04-02] MEDS: LACTATED RINGERS 1,000 ML 1000 ML IV (14:56)
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
[2024-04-02] MEDS: cefTRIAXone 1,000 MG in SODIUM CHLORIDE 0.9% 100 ML 200 MG IV (17:35)
[2024-04-02] MEDS: AZITHROMYCIN 500 MG in DEXTROSE 5% IN WATER 250 ML 250 MG IV (18:04)
== END 2024-04-02 19:20 | disposition home or self-care (01) ==
PROVIDERS: Emergency Provider Emergency Medicine; PCP Family Medicine
DX: A04.4 Other intestinal Escherichia coli infections (principal); K92.2 Gastrointestinal hemorrhage, unspecified; Z3A.15 15 weeks gestation of pregnancy
CPT/HCPCS: 36415; 76811; 80053; 81003; 81025; 85025; 87040; 87507; 96361; 96365; 96367; 99284; J0696

== ENCOUNTER → 2024-04-28 10:55 | Outpatient (CLI) | payer OTHER, MEDICAID, SELFPAY ==
--- NOTE | 2024-04-28 10:56 | DI.US.S_ITS ---
PROCEDURE: US OB >= 14 WEEKS FETUS INDICATIONS: 20 weeks anatomy scan OUTSIDE/PRIOR DATING DATA: Last menstrual period (LMP): 12/09/2023 LMP-based estimated date of delivery (LEA): 09/14/2024 First dating scan (date and location): Unknown Estimated date of delivery (LEA) from first dating scan: 09/23/2024 The calculations are made using the ultrasound LEA of 09/23/2024. TECHNIQUE: Real-time scanning was performed of the fetus, with image documentation and biometric measurements. Endovaginal scanning: Not performed COMPARISON: [facility], OB >= 14 WEEKS FETUS, 04/02/2024, 15:36. FINDINGS: General: A single living intrauterine gestation is present. Presentation: Variable Placenta: Placental position is anterior, without previa. Amniotic fluid index: 16.3 cm, normal range is 5-24 cm. Single deepest vertical pocket is 5.2 cm. heart rate: 147 beats per minute. Maternal cervical canal: 5.5 cm long. Normal lower limit is 2.5 cm. biometrics: Biparietal diameter: 4.5 cm, 19 weeks 4 days Head circumference: 16.6 cm, 19 weeks 2 days Abdominal circumference: 14.3 cm, 19 weeks 4 days Femur length: 3.2 cm, 19 weeks 6 days Clinically estimated gestational age: 18 weeks 6 days Composite gestational age from present scan: 19 weeks 4 days Estimated weight and percentile: 306 g, 89th percentile Anatomic survey: Neuro: Ventricles are non-dilated at less than 10 mm. Cisterna magna is normal at 3-11 mm. Cerebellum is normal in size and morphology. Nuchal skin fold: Normal at less than 6 mm between 14-21 weeks gestational age. Face: Nose and lips, facial profile are normal. Spine: Spine not well evaluated due to position. Heart: 4-chambered heart is present, with left ventricular outflow tract. Right ventricular outflow tract is not well visualized. Diaphragm: Diaphragm is intact. Stomach: Left-sided stomach is present. Kidneys: No hydronephrosis. Normal is less than 5 mm in 2nd trimester, less than 7 mm in 3rd trimester. Cord: 3-vessel cord has orthotopic insertion. Bladder: Normal in size. Extremities: All 4 extremities identified. IMPRESSION: 1. Single live intrauterine . 2. Estimated weight is at the 89th percentile for gestational age. 3. spine and right ventricular outflow tract are not well visualized due to positioning. Recommend follow-up exam. 4. anatomic survey is otherwise within normal limits. Approved by: Sathya Winters M.D. on 04/28/2024 at 21:24
== END ==
LOC: US 10:55
PROVIDERS: PCP Family Medicine; Referring Provider Student in an Organized Health Care Education/Training Program; Visit Provider Student in an Organized Health Care Education/Training Program
DX: Z34.82 Encounter for supervision of other normal pregnancy, second trimester (principal); Z3A.19 19 weeks gestation of pregnancy
CPT/HCPCS: 76811

== ENCOUNTER → 2024-05-10 16:43 | Outpatient (CLI) | payer OTHER, MEDICAID, SELFPAY ==
--- NOTE | 2024-05-10 16:44 | DI.US.S_ITS ---
PROCEDURE: US OB FOLLOW UP INDICATIONS: Follow up anatomy scan OUTSIDE/PRIOR DATING DATA: Last menstrual period (LMP): 12/09/2023. LMP-based estimated date of delivery (LEA): 09/14/2024. First dating scan (date and location): 04/02/2024 Estimated date of delivery (LEA) from first dating scan: 09/23/2024. The calculations are made using the ultrasound LEA of 09/23/2024. TECHNIQUE: Real-time scanning was performed of the fetus, with image documentation. Endovaginal scanning: Not performed COMPARISON: [facility], US OB >= 14 WEEKS FETUS, 04/28/2024, 11:29. FINDINGS: A single living intrauterine gestation is present. Presentation: Variable. Placenta: Placental position is anterior, without previa. Amniotic fluid index: 16.9 cm, normal range is 5-24 cm. Single deepest vertical pocket is 5.4 cm. heart rate: 149 beats per minute. Maternal cervical canal: 4.8 cm long. Normal lower limit is 2.5 cm. Clinically estimated gestational age: 20 weeks 4 days spine, stomach/abdomen, kidneys, urinary bladder are within normal limits. RVOT is not documented. IMPRESSION: 1. Haddad living intrauterine at 20 weeks 4 days based on prior dating. 2. Normal placenta and amniotic fluid. 3. Normal spine. RVOT is not documented. Dictated by: Joel Lewis M.D. on 05/11/2024 at 12:14 Approved by: Joel Lewis M.D. on 05/11/2024 at 12:22
== END ==
PROVIDERS: PCP Family Medicine; Referring Provider Student in an Organized Health Care Education/Training Program; Visit Provider Student in an Organized Health Care Education/Training Program
DX: Z36.2 Encounter for other antenatal screening follow-up (principal); Z3A.20 20 weeks gestation of pregnancy
CPT/HCPCS: 76816

== ENCOUNTER 2024-07-04 14:55 | Observation (INO) | payer OTHER, MEDICAID, SELFPAY ==
[2024-07-04] MEDS: ACETAMINOPHEN 325 MG TABLET 650 MG PO (15:37)
== END 2024-07-04 15:55 | disposition home or self-care (01) ==
LOC: LABOR 14:57
PROVIDERS: Admitting Provider Student in an Organized Health Care Education/Training Program; PCP Family Medicine; Referring Provider Student in an Organized Health Care Education/Training Program; Visit Provider Student in an Organized Health Care Education/Training Program
DX: O36.8130 Decreased fetal movements, third trimester, not applicable or unspecified (principal); Z3A.28 28 weeks gestation of pregnancy
CPT/HCPCS: 59025; G0378; G0379

== ENCOUNTER → 2024-07-07 11:45 | Outpatient (CLI) | payer OTHER, MEDICAID, SELFPAY ==
[2024-07-08 14:38] LABS: Candida species Negative (Negative); Gardnerella vaginalis Negative (Negative); Trichomoas vaginalis Negative (Negative)
== END ==
PROVIDERS: PCP Family Medicine; Visit Provider Student in an Organized Health Care Education/Training Program
DX: N89.8 Other specified noninflammatory disorders of vagina (principal)
CPT/HCPCS: 87480; 87510; 87660

== ENCOUNTER 2024-07-11 20:55 | Outpatient (CLI) | payer OTHER, SELFPAY ==
[2024-07-11] MEDS: FLUCONAZOLE 100 MG TABLET 150 MG PO (21:44)
== END 2024-07-11 21:50 | disposition home or self-care (01) ==
LOC: LABOR 21:50 → OB 08-29 15:48
PROVIDERS: PCP Family Medicine; Referring Provider Student in an Organized Health Care Education/Training Program; Visit Provider Student in an Organized Health Care Education/Training Program
DX: O21.2 Late vomiting of pregnancy (principal); O26.893 Other specified pregnancy related conditions, third trimester; Z3A.29 29 weeks gestation of pregnancy; R19.7 Diarrhea, unspecified; R10.2 Pelvic and perineal pain
CPT/HCPCS: 59025; G0378; G0379

== ENCOUNTER 2024-08-08 16:04 | Outpatient (CLI) | payer OTHER, SELFPAY ==
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
== END 2024-08-08 17:01 | disposition home or self-care (01) ==
LOC: OB 08-09 07:15
PROVIDERS: PCP Family Medicine; Referring Provider Student in an Organized Health Care Education/Training Program; Visit Provider Student in an Organized Health Care Education/Training Program
DX: O47.03 False labor before 37 completed weeks of gestation, third trimester (principal); Z3A.32 32 weeks gestation of pregnancy
CPT/HCPCS: 59025; G0378; G0379

== ENCOUNTER 2024-08-29 09:22 | Outpatient (CLI) | payer OTHER, SELFPAY ==
--- NOTE | 2024-08-29 09:58 | DI.US.S_ITS ---
PROCEDURE: US OB BIOPHYSICAL PROFILE INDICATIONS: 36 weeks breech. Low RHONDA in office OUTSIDE/PRIOR DATING DATA: Provided working LEA is 09/23/2024. TECHNIQUE: Real-time scanning was performed of the fetus for biophysical profile, with image documentation. Color and pulse Doppler interrogation was also performed of the umbilical artery near its insertion into the placenta. COMPARISON: [facility], , OB FOLLOW UP, 05/10/2024, 16:55. FINDINGS: General: A single living intrauterine gestation is present. Presentation: Breech. Placenta: Placental position is anterior , without previa. Amniotic fluid index: 5.8 cm, normal range is 5-24 cm. Single deepest vertical pocket is 2.8 cm. heart rate: 149 beats per minute. Clinically estimated gestational age: 36 weeks and 3 days Biophysical profile: Tone: 2 points. Movement: 2 points. Respiration: 2 points. Largest pocket of fluid: 2 points. IMPRESSION: Breech presentation. Living intrauterine gestation. BPP is 8/8. RHONDA is borderline low at 5.8 cm. Dictated by: Sam Long M.D. on 08/29/2024 at 11:10 Approved by: Sam Long M.D. on 08/29/2024 at 11:12
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
== END 2024-08-29 11:00 | disposition home or self-care (01) ==
LOC: LABOR 10:53 → OB 08-30 06:16
PROVIDERS: PCP Family Medicine; Referring Provider Student in an Organized Health Care Education/Training Program; Visit Provider Student in an Organized Health Care Education/Training Program
DX: Z03.71 Encounter for suspected problem with amniotic cavity and membrane ruled out (principal); O32.1XX0 Maternal care for breech presentation, not applicable or unspecified; Z3A.36 36 weeks gestation of pregnancy
CPT/HCPCS: 59025; 76819; 84112; 87653; G0378; G0379

== ENCOUNTER → 2024-08-29 09:22 | Outpatient (CLI) | payer OTHER, SELFPAY ==
[2024-08-30 08:59] LABS: Strep Grp B PCR NEG for Grp B Strep
== END ==
PROVIDERS: PCP Family Medicine; Visit Provider Student in an Organized Health Care Education/Training Program
DX: Z36.85 Encounter for antenatal screening for Streptococcus B (principal)
CPT/HCPCS: 87653

== ENCOUNTER 2024-09-06 06:39 | Observation (INO) | payer OTHER, SELFPAY ==
--- NOTE | 2024-09-06 07:36 | PM.PROC.IH ---
Procedures Date/Time Date of procedure: 09/06/24 Time of procedure: 07:37 General Procedure description: Counseling Note: Pt was counseled regarding the risks, benefits, and alternatives to external cephalic version. She was informed of the risk of distress, premature rupture of membranes, placental abruption, fetomaternal hemorrhage, emergent delivery, cord prolapse, and even , however these risks are very low (6% overall risk of any complications). She was informed of the benefit of successful external cephalic version being a planned vaginal , which has inherently lower risks than planned delivery. The alternative to this procedure attempt would be to plan for delivery unless the baby has spontaneous version to vertex presentation. Pre-procedure NST: 140s bpm, moderate variability, + accels, no decels Pre-procedure toco: asymptomatic ctx q5min Pre-procedure US: breech presentation, SDP 4.5cm Pre-medication given: terbutaline 0.25mg x1 Procedure: An external cephalic version was attempted after real time ultrasond determination of position and localization of the placenta. After numerous attempts (both forward and backward roll), the remained in breech presentation, thus the procedure was ended. Pt was then placed on continuous EFM for 30min post-procedure for monitoring with category I tracing. ABO Rh: O positive Complications: none IH PROFEE Disability Manager Document charge(s): No Assessment & Plan (1) Breech presentation: Status: Acute Code(s): O32.1XX0 - Maternal care for breech presentation, not applicable or unspecified Qualifiers: Fetus number: single or unspecified fetus Qualified Code(s): O32.1XX0 - Maternal care for breech presentation, not applicable or unspecified Plan 29yo at 37+4wks presented to the center for planned ECV. Patient tolerated procedure well, unfortunately baby was still breech after numerous attempts. Pre and post procedure EFM was reassuring and category I. -I reviewed labor precautions with patient, and reasons to return to care sooner -follow-up next week for visit -plan for primary at 39 weeks if baby has not spontaneously turned
[2024-09-06] MEDS: MINERAL OIL 30 ML UDC TOP (07:51)
[2024-09-06] MEDS: TERBUTALINE 1 MG/ML VIAL 0.25 MG SUBCUT (07:52)
[2024-09-06 07:58] LABS: Add Manual Diff / Slide Review NO; Basophils Absolute Auto 0 /uL (0-100); Basophils Percent Auto 0.3 % (0-2); Eosinophils Absolute Auto 100 /uL (0-450); Eosinophils Percent Auto 1.7 % (2-4); Hematocrit 36.4 % (36-46); Hemoglobin 12.3 g/dL (12.0-16.0); Lymphocytes Absolute Auto 1400 /uL (1100-4500); Lymphocytes Percent Auto 15.7 % (25-40); Mean Corpuscular HGB Conc 33.9 % (30-36); Mean Corpuscular Hemoglobin 30.6 PG (26-34); Mean Corpuscular Volume 90.3 fL (80-100); Monocytes Absolute Auto 500 /uL (0-900); Monocytes Percent Auto 5.6 % (3-14); Neutrophils Absolute Auto 6700 /uL (1500-7000); Neutrophils Percent Auto 76.7 % (50-75); Platelet Count 187 X10^3/uL (150-400); Red Blood Cell Count 4.03 X10^6/uL (4.0-5.2); Red Cell Distribution Width 13.6 % (11.6-14.8); White Blood Cell Count 8.7 X10^3/uL (4.5-11.0)
== END 2024-09-06 08:58 | disposition home or self-care (01) ==
PROVIDERS: Admitting Provider Student in an Organized Health Care Education/Training Program; PCP Family Medicine; Referring Provider Student in an Organized Health Care Education/Training Program; Visit Provider Student in an Organized Health Care Education/Training Program
DX: O32.1XX0 Maternal care for breech presentation, not applicable or unspecified (principal); Z3A.37 37 weeks gestation of pregnancy
CPT/HCPCS: 36415; 59025; 59412; 76815; 85025; 86850; 86900; 86901; 96372; G0378; A9270; G0379

== ENCOUNTER 2024-09-13 15:04 | Inpatient (IN) | payer OTHER, SELFPAY ==
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
[2024-09-13 16:19] LABS: Add Manual Diff / Slide Review NO; Basophils Absolute Auto 0 /uL (0-100); Basophils Percent Auto 0.4 % (0-2); Eosinophils Absolute Auto 100 /uL (0-450); Eosinophils Percent Auto 1.1 % (2-4); Hematocrit 34.9 % (36-46); Hemoglobin 11.8 g/dL (12.0-16.0); Lymphocytes Absolute Auto 1300 /uL (1100-4500); Lymphocytes Percent Auto 12.6 % (25-40); Mean Corpuscular HGB Conc 33.8 % (30-36); Mean Corpuscular Hemoglobin 30.5 PG (26-34); Mean Corpuscular Volume 90.4 fL (80-100); Monocytes Absolute Auto 400 /uL (0-900); Monocytes Percent Auto 4.1 % (3-14); Neutrophils Absolute Auto 8100 /uL (1500-7000); Neutrophils Percent Auto 81.8 % (50-75); Platelet Count 216 X10^3/uL (150-400); Red Blood Cell Count 3.87 X10^6/uL (4.0-5.2); Red Cell Distribution Width 13.8 % (11.6-14.8); White Blood Cell Count 9.9 X10^3/uL (4.5-11.0)
[2024-09-13 16:25] VITALS: BP 117/79; PULSE 92
[2024-09-13] MEDS: LACTATED RINGERS 1,000 ML 999 ML IV (16:25)
[2024-09-13] MEDS: CITRIC ACID/SODIUM CITRATE 15 ML SOLUTION 30 ML PO (16:26)
[2024-09-13] MEDS: CEFAZOLIN 2 GM/100 ML PREMIX 100 ML IV (17:45)
--- NOTE | 2024-09-13 18:16 | SUR.OPER ---
Supine on Padded OR bed, head on pillow, safety belt at thigh, arms secured on padded arm boards at <90 degrees abduction. Bump under right buttock. Legs uncrossed with pillow under knees, gel pad to heels, tape over blanket to lower legs.
[2024-09-13 18:24] VITALS: BP 117/73
--- NOTE | 2024-09-13 18:24 | SUR.OPER ---
FHT at 135 prior to incision, viable baby boy born at 1801, placenta delivered at 1804, 8/9, cord blood and placenta taked to OB by OB RN
[2024-09-13] MEDS: ACETAMINOPHEN IV 1,000 MG/100 ML VIAL 400 MG IV (18:28)
--- NOTE | 2024-09-13 18:44 | P.OP_ITS ---
Operative Date/Time/Diagnoses Date of procedure: 09/13/24 Time of procedure: 17:45 Pre-op diagnosis: 1. [place] intrauterine gestation at 38+4 weeks 2. Oligohydramnios 3. Breech presentation Post-op diagnosis: same Procedure & Clinicians Procedure: Primary low transverse section Same procedure as scheduled: Yes Indications: 29yo at 38+4wks diagnosed with oligohydramnios. Given persistent breech presentation, she was counseled and consented for primary delivery. Surgeon: Verenice Chavez Continuous Improvement Black Belt: Grady Ricci Reason for Continuous Improvement Black Belt: Continuous Improvement Black Belt was necessary for timely, efficient, and safe completion of the pro cedure. Anesthesia Type: Spinal Operative Notes Findings: Normal-appearing uterus and bilateral fallopian tubes and ovaries. Minimal fluid noted with AROM. Delivery productive of a viable male infant in complete breech presentation with APGARs 8/9 and weighing 3343g. Closure Type: primary Specimen(s): cord blood Intraoperative meds administered: Duramorph Applied: Catheter Estimated Blood Loss (mL): 700 Blood products transfused: none Procedure in detail: The risks, benefits, indications and alternatives of the procedure were reviewed with the patient and informed consent was obtained. The patient was taken to the operating room where spinal anesthesia was obtained without difficulty and was found to be adequate. Sequential compression devices were placed bilaterally for VTE prophylaxis. She was then prepped and draped in the normal, sterile fashion in the dorsal supine position with a leftward tilt. She received 2g Ancef for surgical prophylaxis. A Pfannenstiel skin incision was then made with the scalpel and carried through to the underlying layer of fascia. The fascia was incised in the midline and digitally. The rectus muscles were then at the midline. The peritoneum was identified, and entered digitally. The peritoneal incision was then extended horizontally, superiorly and inferiorly, with good visualization of the bladder. The bladder blade was inserted. The lower uterine segment was incised in a transverse fashion with the scalpel. The uterine incision was then extended manually in a cephalad/caudad direction. The amniotic sac was artificially ruptured, productive of minimal clear fluid. The bladder blade was then removed. The infant?s sacrum was grasped and brought to the level of the hysterotomy. Pinard?s maneuver was used to atraumatically deliver the legs through the hysterotomy. A blue towel was placed around the sacrum and Loveset?s maneuver was performed to the level of the scapula.? The bilateral arms were swept and delivered followed by the head using the Mmwdovhij-Mgorewh-Zkrw maneuver.? The cord was doubly clamped and cut after a 60sec delay with the handed off to the waiting pediatrics team. The placenta was then removed spontaneously with gentle traction on the umbilical cord. The uterus was then left exteriorized and cleared of all clots and debris. The uterine incision was repaired with 0-vicryl in a running, locked fashion. A second layer using 0-monocryl was then used to imbricate the hysterotomy with excellent hemostasis achieved. The uterus was returned to the abdomen and the hysterotomy was again noted to be hemostatic. The paracolic gutters were cleared of all clot and debris. The fascia was reapproximated with 0-vicryl in a running fashion. The subcutaneous layer was closed with 3-0 vicryl in simple, interrupted sutures. The skin was closed with 4-0 monocryl in a subcuticular fashion. The incision was then dressed with steri-strips and a pressure dressing was applied. At the completion of the case, a Crede maneuver was performed with good uterine tone and minimal vaginal bleeding noted.? The patient tolerated the procedure well. Sponge, lap and needle counts were correct x3. The patient was taken to the recovery room in stable condition. The patient is a candidate for a trial of labor after . Complications: none [place] Baby 1: Delivery Date: 09/13/24 Delivery Time: 18:01 Infant Gender: Male Presentation: breech Details: complete Placental Delivery Description: Expressed Cord Vessel Description: 3 Vessels Post-operative Condition: stable Disposition: PACU Aftercare: routine postop
[2024-09-13 18:46] VITALS: BP 116/71; PULSE 85; RESP 17; TEMP 36.6; O2SAT 98
[2024-09-13 18:51] VITALS: BP 110/67; PULSE 75; RESP 21; TEMP 36.6; O2SAT 98
[2024-09-13 18:55] VITALS: BP 120/74; PULSE 83; RESP 17; TEMP 36.4; O2SAT 98
[2024-09-13 19:01] VITALS: BP 115/71; PULSE 87; RESP 15; TEMP 36.6; O2SAT 99
[2024-09-14] MEDS: KETOROLAC 30 MG/ML VIAL IV ×3 (01:03→16:32)
[2024-09-14] MEDS: ACETAMINOPHEN 325 MG TABLET 650 MG PO ×4 (04:13→22:28)
[2024-09-14 07:19] LABS: Add Manual Diff / Slide Review NO; Basophils Absolute Auto 0 /uL (0-100); Basophils Percent Auto 0.3 % (0-2); Eosinophils Absolute Auto 0 /uL (0-450); Eosinophils Percent Auto 0.1 % (2-4); Hemoglobin 9.6 g/dL (12.0-16.0); Lymphocytes Absolute Auto 1200 /uL (1100-4500); Lymphocytes Percent Auto 10.8 % (25-40); Mean Corpuscular HGB Conc 34.4 % (30-36); Mean Corpuscular Hemoglobin 30.8 PG (26-34); Mean Corpuscular Volume 89.5 fL (80-100); Monocytes Absolute Auto 500 /uL (0-900); Monocytes Percent Auto 4.2 % (3-14); Neutrophils Absolute Auto 9500 /uL (1500-7000); Neutrophils Percent Auto 84.6 % (50-75); Platelet Count 193 X10^3/uL (150-400); Red Blood Cell Count 3.14 X10^6/uL (4.0-5.2); Red Cell Distribution Width 13.7 % (11.6-14.8); White Blood Cell Count 11.3 X10^3/uL (4.5-11.0)
[2024-09-14] MEDS: PRENATAL VIT,CALC/IRON/FOLIC 1 TABLET 1 TAB PO (08:37)
--- NOTE | 2024-09-14 10:36 | P.PNOB_ITS ---
Subjective - OB Subjective Patient comments: no complaints [place] baby status: doing well [place] feeding status: exclusively breast feeding Narrative: 29yo [id number] s/p PLTCS for breech, now POD#1. She is doing well, pain well controlled. Ambulated without dizziness/lightheadedness. Minimal lochia. Dong still in place. Date Patient Seen: 09/14/24 Time Patient Seen: 10:36 Exam Vital Signs (past 8 hours): Oxygen Delivery Method Room Air vitals reviewed in OBIX, within normal parameters Const General: healthy appearing, comfortable and No acute distress Resp Effort & Inspection: normal respiratory effort and able to speak in complete sentences GI Other: soft, nontender, nondistended Skin Other: incision clean/dry/intact with steri-strips in place Extrem General: normal to inspection and no calf tenderness Psych Mood: congruent mood Affect: normal affect Objective Labs 09/14/24 07:02 Labs: Laboratory Results - last 24 hr 09/13/24 09/14/24 16:11 07:02 WBC 9.9 11.3 H RBC 3.87 L 3.14 L Hgb 11.8 L 9.6 L Hct 34.9 L 28.0 L MCV 90.4 89.5 MCH 30.5 30.8 MCHC 33.8 34.4 RDW 13.8 13.7 Plt Count 216 193 Neut % (Auto) 81.8 H 84.6 H Lymph % (Auto) 12.6 L 10.8 L [place] % (Auto) 4.1 4.2 Eos % (Auto) 1.1 L 0.1 L Baso % (Auto) 0.4 0.3 Neut # (Auto) 8100 H 9500 H Lymph # (Auto) 1300 1200 [place] # (Auto) 400 500 Eos # (Auto) 100 0 Baso # (Auto) 0 0 Blood Type O Positive Antibody Screen Negative Assessment & Plan Assessment and Plan (1) delivery indicated due to breech presentation: Status: Acute Plan day: 1 plan OB: routine postop care Comments: Anticipate d/c home tomorrow. Time-Based Coding :: [30min] spent with patient and on the chart (including review of chart, obtaining history, exam, reviewing outside data, placing orders, documenting exam and treatment plan, and counseling patient) on [09/14/24].
[2024-09-14] MEDS: IBUPROFEN 600 MG TABLET PO (22:28)
[2024-09-15] MEDS: IBUPROFEN 600 MG TABLET PO ×2 (04:34→11:00)
[2024-09-15] MEDS: ACETAMINOPHEN 325 MG TABLET 650 MG PO ×2 (04:34→11:00)
--- NOTE | 2024-09-15 09:45 | P.DS_ITS ---
Discharge Providers Provider Date of admission: 09/13/24 15:04 Discharge Date: 09/15/24 Primary care physician: Grady Ferrell MD Consults: 09/13/24 19:25 Consult to [employer] Operator Routine Comment: Discharge provider: Verenice Chavez DO Summary Hospital Course Date Patient Seen: 09/15/24 Time Patient Seen: 09:45 Diagnoses: Term gestation at 38+4wks Oligohydramnios Breech presentation Hospital Course: 29yo [id number] admitted at 38+4wks for delivery due to newly diagnosed oligohydramnios. Given that her baby was still in breech presentation, she was counseled and consented for a primary low transverse delivery. Her delivery was uncomplicated, and productive of a viable male . Her course was unremarkable. On post-op day #2, she was ambulating, tolerating regular diet, voiding spontaneously with minimal lochia. Her pain was well controlled with oral medications, thus she was discharged to home on post-op day #2. Peripartum Data Infant Delivery Method: Section Procedures: External monitoring Neuraxial anesthesia Antibiotic prophylaxis delivery complications: none [place] 1: Gender: Male Disposition of : home Discharge Diagnosis (1) delivery indicated due to breech presentation: Status: Acute (2) Delivery outcome of single liveborn infant: Status: Acute (3) Oligohydramnios in third trimester: Status: Acute (4) Acute postoperative anemia due to expected blood loss: Status: Acute (5) Rubella non-immune status, antepartum: Status: Acute (6) Mental disorder affecting : Status: Acute (7) Urinary tract infection during : Status: Acute (8) 38 weeks gestation of : Status: Acute Status at Discharge Cognitive/behavioral status at discharge: oriented Functional status at discharge: independent ambulation Overall status at discharge: patient is progressing back to baseline Time Spent with Patient Time attestation: Total time spent providing and/or coordinating discharge services: Time spent: Less than 30 minutes Objective Labs 09/14/24 07:02 Exam Vital Signs (past 8 hours): Oxygen Delivery Method Room Air vitals reviewed in OBIX, within normal parameters Const General: cooperative, healthy appearing, comfortable and No acute distress Resp Effort & Inspection: normal respiratory effort GI Inspection: normal to inspection Other: fundus firm and nontender at U-2 Skin General: no rashes or lesions noted Other: incision clean/dry/intact with steri-strips in place Neuro General: patient alert and patient awake Extrem General: normal to inspection, no pedal edema and no calf tenderness Psych Mood: congruent mood Affect: normal affect Discharge Plan Discharge Plan Patient Disposition: Home Provider Discharge Comment: Take ibuprofen 600mg every 6hrs and acetaminophen 650mg every 6hrs for pain. Use oxycodone 5mg every 4-6hrs as needed for severe pain. Avoid lifting greater than 20lbs for at least 6 weeks. Avoid placing anything in the vagina for 6 weeks. Take an oral iron supplement daily to help replenish your iron stores given the blood loss from surgery. Discharge orders & Medications Prescriptions: New acetaminophen 325 mg Tablet 650 mg PO Q6H Qty: 30 0RF ibuprofen 600 mg Tablet 600 mg PO Q6H Qty: 30 0RF oxycodone 5 mg Tablet 5 mg PO Q4H PRN (Reason: Pain, Moderate (4-6)) Qty: 10 0RF Continued vit-ferrous sulfat-FA 27 mg iron- 0.8 mg tablet See Rx Instructions .ROUTE .COMPLEX Rx Instructions: Take as directed. Follow up/Referrals: Verenice Chavez DO [Physician] - () Diet/Activity/Treatments Diet: Diet as Tolerated Activity: As tolerated. Skin/Wound/Dressing Care Report to your healthcare provider any signs of infection, such as:: chills, fever, increased pain, unusual drainage and unusual redness Dressing: You may shower normally. The steri-strips will fall off in about 1 week. Visit Report/Discharge Packet Instructions: Anemia: How Food and Vitamins Can Help, DI for , DI for Prescription Opioid Use Stand Alone Forms: Patient Portal/API, Stroke Signs & Symptoms Discharge Data Primary Care Provider: Grady Ferrell
[2024-09-15] MEDS: PRENATAL VIT,CALC/IRON/FOLIC 1 TABLET 1 TAB PO (10:59)
[2024-09-15 13:48] VITALS: BP 101/59; PULSE 75; RESP 15; TEMP 36.6
== END 2024-09-15 12:30 | disposition home or self-care (01) | DRG 540 ==
PROVIDERS: Admitting Provider Student in an Organized Health Care Education/Training Program; PCP Family Medicine; Referring Provider Student in an Organized Health Care Education/Training Program; Visit Provider Student in an Organized Health Care Education/Training Program
PROC: 10D00Z1 Extraction of Products of Conception, Low, Open Approach (ICD-10-PCS; CPT 59514; principal; 2024-09-13 17:00)
DX: O32.8XX0 Maternal care for other malpresentation of fetus, not applicable or unspecified (principal); Z3A.38 38 weeks gestation of pregnancy; Z37.0 Single live birth
CPT/HCPCS: 36415; 59050; 59514; 85025; 86850; 86900; 86901; J0131; J0690; J1885; J2274